=== PATIENT | female | born 1975 | race Caucasian/White ===

== ENCOUNTER 2021-12-22 13:31 | Emergency (ER) | payer BC ==
[2021-12-22] MEDS ORDERED: Metoclopramide 10 MG/2 ML SDV IVPUSH ONE (14:15)
[2021-12-22] MEDS ORDERED: HYDROmorphone 1 MG/ML Syringe IVPUSH ONE (14:15)
[2021-12-22] MEDS ORDERED: Dextrose 5%-0.9% NaCl 1,000 ML IV SCH (14:15)
[2021-12-22] MEDS ORDERED: methylPREDNISolone Sodium Succinate 125 MG/2 ML SDV IVPUSH ONE (15:54)
== END 2021-12-22 16:36 | disposition home or self-care (01) ==
LOC: JD.ED 13:31
DX: M54.50 Low back pain, unspecified (principal); Z91.040 Latex allergy status; Z91.041 Radiographic dye allergy status; Z86.16 Personal history of COVID-19
CPT/HCPCS: 72131; 96374; 96375; 99283; J1170; J2765; J2930; J7042; 99284

== ENCOUNTER 2022-08-06 10:11 | Emergency (ER) | payer BC ==
[2022-08-06] MEDS ORDERED: HYDROmorphone 1 MG/ML Syringe IVPUSH STA (11:18)
[2022-08-06] MEDS ORDERED: Ondansetron 4 MG/2 ML SDV IVPUSH ONE (11:18)
[2022-08-06] MEDS ORDERED: Orphenadrine 100 MG Tab.ER PO ONE (11:19)
[2022-08-06] MEDS ORDERED: Dexamethasone 10 MG/ML SDV IVPUSH ONE (11:31)
[2022-08-06] MEDS ORDERED: Morphine 4 MG/ML Syringe IVPUSH ONE ×2 (12:11→14:38)
== END 2022-08-06 15:18 | disposition home or self-care (01) ==
LOC: JD.ED 10:11
DX: M54.41 Lumbago with sciatica, right side (principal); M54.42 Lumbago with sciatica, left side; Z86.16 Personal history of COVID-19; Z91.040 Latex allergy status; Z91.041 Radiographic dye allergy status
CPT/HCPCS: 72148; 96374; 96375; 96376; 99283; A9270; J1100; J1170; J2270; J2405